=== PATIENT | male | born 1960 | race Caucasian/White ===

== ENCOUNTER 2020-04-23 10:31 | Emergency (ER) | payer SELFPAY ==
--- NOTE | 2020-04-23 10:37 | EDM.PDOC ---
ED HPI GENERAL MEDICAL PROBLEM - General Chief Complaint: Back Pain or Injury Stated Complaint: [facility] Time Seen by Provider: 04/23/20 10:36 Source of Information: Reports: Patient, Old Records History Limitations: Reports: No Limitations - History of Present Illness Duration: Getting Worse, Recurring Back Pain Score (Numeric/FACES): 3 - Related Data Allergies Allergy/AdvReac Type Severity Reaction Status Date / Time No Known Allergies Allergy Verified 04/23/20 10:32 Home Meds: Home Meds Cyclobenzaprine [Flexeril] 10 mg PO TID 3 Days #9 tab 04/23/20 [Rx] Metoprolol Succinate 50 mg PO DAILY 04/23/20 [History] amLODIPine [Norvasc] 5 mg PO DAILY 04/23/20 [History] Social & Family History - Tobacco Use Smoking Status *Q: Never Smoker - Caffeine Use Caffeine Use: Reports: Coffee, Soda - Recreational Drug Use Recreational Drug Use: No ED ROS GENERAL - Review of Systems Review Of Systems: See Below Constitutional: Denies: Fever, Chills HEENT: Reports: No Symptoms Respiratory: Reports: Pleuritic Chest Pain. Denies: Shortness of Breath, Wheezing, Cough Cardiovascular: Denies: Chest Pain GI/Abdominal: Denies: Abdominal Pain Musculoskeletal: Reports: Muscle Pain Skin: Reports: No Symptoms Neurological: Reports: No Symptoms Psychiatric: Reports: No Symptoms ED EXAM,LOWER BACK PAIN/INJURY - Physical Exam Exam: See Below Exam Limited By: No Limitations General Appearance: Alert, Obese Ears: Normal External Exam Nose: Normal Inspection Throat/Mouth: Normal Inspection Head: Atraumatic, Normocephalic Neck: Normal Inspection, Supple Respiratory/Chest: No Respiratory Distress, Lungs Clear Cardiovascular: Normal Peripheral Pulses, Regular Rate, Rhythm GI/Abdominal: Soft, Non-Tender Back Exam: Decreased Range of Motion, Muscle Spasm, Other (Definite swelling and muscle spasm on right posterior thoracic area overlying the right scapula. No midline vertebral tenderness. No rash seen). No: CVA Tenderness (R), CVA Tenderness (L), Paraspinal Tenderness, Vertebral Tenderness Extremities: Normal Inspection, Normal Range of Motion Neurological: Alert, Normal Mood/Affect, Normal Dorsiflexion, Normal Plantar Flexion, Normal Reflexes, No Motor/Sensory Deficits, Oriented x 3, Other (Patient has excellent forceful knee extension from 90 to 180. Excellent forceful foot dorsiflexion against resistance.) DTR - Lower Extremities: 1+: Knee (R), Knee (L) Psychiatric: Normal Affect, Normal Mood EKG INTERPRETATION EKG Date: 04/23/20 Time: 11:45 Rhythm: NSR Rate (Beats/Min): 66 [place]: Normal P-Wave: Present QRS: Normal Course - Vital Signs Text/Narrative:: Chest x-ray is unremarkable. No pleural effusion or right-sided infiltrate. Laboratory results show normal white blood cell count, no anemia, no marked electrolyte abnormality. There is normal kidney function. D-dimer rules out pulmonary embolus. CK is normal thereby ruling out any rhabdomyolysis. Patient states he does feel much better after receiving medications. We'll discharge him home with muscle relaxant. Last Recorded V/S: Last Vital Signs Temp 35.5 C L 04/23/20 10:39 Pulse 69 04/23/20 10:39 Resp 12 04/23/20 10:39 BP 148/83 H 04/23/20 10:39 Pulse Ox 96 04/23/20 10:39 - Orders/Labs/Meds Orders: Active Orders 24 hr Category Date Time Status EKG Documentation Completion [RC] ASDIRECTED Care 04/23/20 11:39 Active Chest 2V [CR] Stat Exams 04/23/20 11:40 Ordered EKG 12 Lead [EK] Urgent Ther 04/23/20 11:38 Ordered Labs: Laboratory Tests 04/23/20 04/23/20 04/23/20 Range/Units 10:57 10:57 10:57 WBC 6.6 (4.5-11.0) K/uL RBC 6.10 H (4.30-5.90) M/uL Hgb 17.8 H (12.0-15.0) g/dL Hct 52.6 (40.0-54.0) % MCV 86 (80-98) fL MCH 29 (27-31) pg MCHC 34 (32-36) % Plt Count 226 (150-400) K/uL PT (9.5-12.0) sec INR (0.80-1.20) D-Dimer, Quantitative (0.0-400.0) ng/mL Sodium 139 L (140-148) mmol/L Potassium 4.2 (3.6-5.2) mmol/L Chloride 103 (100-108) mmol/L Carbon Dioxide 27 (21-32) mmol/L Anion Gap 13.2 (5.0-14.0) mmol/L BUN 21 H (7-18) mg/dL Creatinine 1.3 (0.8-1.3) mg/dL Est Cr Clr Drug Dosing 64.36 mL/min Estimated GFR (MDRD) 56 L (>60) Glucose 107 H (74-106) mg/dL Lactic Acid 1.2 (0.4-2.0) mmol/L Calcium 8.8 (8.5-10.1) mg/dL Total Bilirubin 0.6 (0.2-1.0) mg/dL AST 19 (15-37) U/L ALT 31 (12-78) U/L Alkaline Phosphatase 88 (46-116) U/L Creatine Kinase (39-308) U/L Troponin I (0.000-0.056) ng/mL Total Protein 7.9 (6.4-8.2) g/dL Albumin 4.4 (3.4-5.0) g/dL Globulin 3.5 (2.3-3.5) g/dL Albumin/Globulin Ratio 1.3 (1.2-2.2) 04/23/20 04/23/20 04/23/20 Range/Units 10:57 10:57 10:57 WBC (4.5-11.0) K/uL RBC (4.30-5.90) M/uL Hgb (12.0-15.0) g/dL Hct (40.0-54.0) % MCV (80-98) fL MCH (27-31) pg MCHC (32-36) % Plt Count (150-400) K/uL PT 10.5 (9.5-12.0) sec INR 0.97 (0.80-1.20) D-Dimer, Quantitative < 100 (0.0-400.0) ng/mL Sodium (140-148) mmol/L Potassium (3.6-5.2) mmol/L Chloride (100-108) mmol/L Carbon Dioxide (21-32) mmol/L Anion Gap (5.0-14.0) mmol/L BUN (7-18) mg/dL Creatinine (0.8-1.3) mg/dL Est Cr Clr Drug Dosing mL/min Estimated GFR (MDRD) (>60) Glucose (74-106) mg/dL Lactic Acid (0.4-2.0) mmol/L Calcium (8.5-10.1) mg/dL Total Bilirubin (0.2-1.0) mg/dL AST (15-37) U/L ALT (12-78) U/L Alkaline Phosphatase (46-116) U/L Creatine Kinase 93 (39-308) U/L Troponin I (0.000-0.056) ng/mL Total Protein (6.4-8.2) g/dL Albumin (3.4-5.0) g/dL Globulin (2.3-3.5) g/dL Albumin/Globulin Ratio (1.2-2.2) 04/23/20 Range/Units 11:40 WBC (4.5-11.0) K/uL RBC (4.30-5.90) M/uL Hgb (12.0-15.0) g/dL Hct (40.0-54.0) % MCV (80-98) fL MCH (27-31) pg MCHC (32-36) % Plt Count (150-400) K/uL PT (9.5-12.0) sec INR (0.80-1.20) D-Dimer, Quantitative (0.0-400.0) ng/mL Sodium (140-148) mmol/L Potassium (3.6-5.2) mmol/L Chloride (100-108) mmol/L Carbon Dioxide (21-32) mmol/L Anion Gap (5.0-14.0) mmol/L BUN (7-18) mg/dL Creatinine (0.8-1.3) mg/dL Est Cr Clr Drug Dosing mL/min Estimated GFR (MDRD) (>60) Glucose (74-106) mg/dL Lactic Acid (0.4-2.0) mmol/L Calcium (8.5-10.1) mg/dL Total Bilirubin (0.2-1.0) mg/dL AST (15-37) U/L ALT (12-78) U/L Alkaline Phosphatase (46-116) U/L Creatine Kinase (39-308) U/L Troponin I < 0.017 (0.000-0.056) ng/mL Total Protein (6.4-8.2) g/dL Albumin (3.4-5.0) g/dL Globulin (2.3-3.5) g/dL Albumin/Globulin Ratio (1.2-2.2) Meds: Medications Discontinued Medications Generic Name Dose Route Start Last Admin Trade Name [place] PRN Reason Stop Dose Admin Diazepam 5 mg 04/23/20 10:54 04/23/20 11:06 Valium. PO 04/23/20 10:55 5 mg ONETIME ONE Administration Ketorolac Tromethamine 60 mg 04/23/20 10:54 04/23/20 11:06 Toradol IM 04/23/20 10:55 60 mg ONETIME ONE Administration Departure - Departure Time of Disposition: 12:25 Disposition: Home, Self-Care 01 Condition: Good Clinical Impression: Muscle spasm of back - Discharge Information Instructions: Muscle Cramps and Spasms, [id number] Referrals: PCP,None [Primary Care Provider] - Forms: ED Department Discharge Sepsis Event Note (ED) - Focused Exam Vital Signs: Vital Signs Temp Pulse Resp BP Pulse Ox 04/23/20 10:39 35.5 C L 69 12 148/83 H 96 04/23/20 10:35 35.5 C L 69 12 148/83 H 96 - My Orders Last 24 Hours: My Active Orders 04/23/20 11:38 EKG 12 Lead [EK] Urgent 04/23/20 11:39 EKG Documentation Completion [RC] ASDIRECTED 04/23/20 11:40 Chest 2V [CR] Stat - Assessment/Plan Last 24 Hours: My Active Orders 04/23/20 11:38 EKG 12 Lead [EK] Urgent 04/23/20 11:39 EKG Documentation Completion [RC] ASDIRECTED 04/23/20 11:40 Chest 2V [CR] Stat
[2020-04-23] MEDS ORDERED: Ketorolac 60 MG/2 ML SDV IM ONE (10:54)
[2020-04-23] MEDS ORDERED: Diazepam 5 MG Tab PO ONE (10:54)
--- NOTE | 2020-04-23 12:32 | CR ---
CHEST: 2 view CLINICAL HISTORY:Right thoracic pain COMPARISON:None FINDINGS: The heart size, pulmonary vascularity and hilar structures are normal. No infiltrate effusion or pneumothorax is seen. IMPRESSION: No acute cardiopulmonary process
== END 2020-04-23 13:01 | disposition home or self-care (01) ==
LOC: JP.ED 10:31
DX: M62.830 Muscle spasm of back (principal); Z79.899 Other long term (current) drug therapy
CPT/HCPCS: 36415; 71046; 71046-26; 80053; 82550; 83605; 84484; 85027; 85379; 85610; 93005; 96372; 99284-25; A9270-GY; J1885